=== PATIENT | female | born 2000 | race Asian ===

== ENCOUNTER 2024-08-31 09:48 | Emergency (ER) | payer MEDICAID ==
[~2024-08-31] VITALS: Ht 147.3 cm; Wt 47.7 kg
[2024-08-31 09:59] VITALS: TEMP 98.2
[2024-08-31] MEDS: LIDOCAINE 5% TRANSDERMAL PATCH TD ONE (10:38)
[2024-08-31] MEDS: IBUPROFEN 600 MG TABLET PO ONE (10:38)
[2024-08-31 11:05] VITALS: BP 139/65; PULSE 87; RESP 18; O2SAT 99
== END 2024-08-31 11:37 | disposition home or self-care (01) ==
LOC: EMS 09:48
DX: H93.11 Tinnitus, right ear (principal); M54.2 Cervicalgia; V43.52XA Car driver injured in collision with other type car in traffic accident, initial encounter; Y93.89 Activity, other specified; Y92.410 Unspecified street and highway as the place of occurrence of the external cause; Y99.8 Other external cause status
CPT/HCPCS: 71045; 99283